=== PATIENT | female | born 1935 | race African-American/Black ===

== ENCOUNTER 2018-10-31 09:18 | Day surgery (SDC) | payer OTHER ==
[2018-10-31] VITALS (10 sets, daily range): BP systolic 73–102; BP diastolic 42–58
[~2018-10-31] VITALS: Ht 170.2 cm; Wt 73.0 kg
[~2018-10-31 09:18] MED LIST: ALLO300T2 PO; AMIO200T5 PO; ATOR10TA69 PO; METO25TA6 PO; NIFE60TA71 PO; PANT40TA25 PO; SODIUM CHLORIDE 0.9% 1000ML 1,000 ML IV ONE; WARF5TAB76 PO
[2018-10-31] MEDS ORDERED: PROPOFOL 10 MG/ML 20ML VIAL IV ONE (10:01)
[2018-10-31 10:06] LABS: INR 2.52 (0.85-1.15)
--- NOTE | 2018-10-31 10:35 | NUR ---
COUMADIN RESUME COUMADIN TOMORROW PER DR. MORALES/NATHANAEL NICHOLS RN.
== END 2018-10-31 11:30 | disposition home or self-care (01) ==
LOC: DAH 09:18 → ENDO 09:18
PROVIDERS: ATTEND Internal Medicine Gastroenterology
DX: K63.89 Other specified diseases of intestine (principal); K64.0 First degree hemorrhoids; K44.9 Diaphragmatic hernia without obstruction or gangrene; K29.50 Unspecified chronic gastritis without bleeding; D64.9 Anemia, unspecified; E78.5 Hyperlipidemia, unspecified; M81.0 Age-related osteoporosis without current pathological fracture; M19.90 Unspecified osteoarthritis, unspecified site; G89.29 Other chronic pain; F15.90 Other stimulant use, unspecified, uncomplicated; Z88.0 Allergy status to penicillin; Z88.8 Allergy status to other drugs, medicaments and biological substances; Z88.5 Allergy status to narcotic agent; Z79.899 Other long term (current) drug therapy; Z87.891 Personal history of nicotine dependence; Z86.73 Personal history of transient ischemic attack (TIA), and cerebral infarction without residual deficits; Z96.641 Presence of right artificial hip joint; Z98.49 Cataract extraction status, unspecified eye; Z79.01 Long term (current) use of anticoagulants; Z83.3 Family history of diabetes mellitus; Z82.49 Family history of ischemic heart disease and other diseases of the circulatory system; Z82.5 Family history of asthma and other chronic lower respiratory diseases
CPT/HCPCS: 36415; 44360; 45378; 85610; 93005; A4606; J2704; J7030